=== PATIENT | female | born 1970 | race Caucasian/White ===

== ENCOUNTER → 2023-07-28 07:36 | Outpatient (REF) | payer OTHER, SELFPAY | LOC: HWRAD 07:36 | PROVIDERS: ATTENDING PHYSICIAN Nurse Practitioner | DX: E04.1 Nontoxic single thyroid nodule (principal) | CPT/HCPCS: 76536 ==

== ENCOUNTER 2023-09-20 06:17 | Day surgery (SDC) | payer OTHER, SELFPAY ==
[2023-09-19 07:52] VITALS: BMI 29.0
[2023-09-20] VITALS (7 sets, daily range): BP systolic 10–134; BP diastolic 75–87; BMI 29.0
[2023-09-20] MEDS: NORMOSOL-R 1000 IV (10:40)
[2023-09-20] MEDS: TYLENOL 1000 MG PO (10:40)
== END 2023-09-20 16:00 | disposition home or self-care (01) ==
LOC: SDS 06:17
PROVIDERS: ATTENDING PHYSICIAN Surgery; FAMILY PHYSICIAN Nurse Practitioner
DX: K64.4 Residual hemorrhoidal skin tags (principal); K64.8 Other hemorrhoids
CPT/HCPCS: 46260; 88304; 36415; 93005

== ENCOUNTER → 2023-11-23 11:55 | Outpatient (REF) | payer OTHER, SELFPAY | LOC: WDC 11:55 | PROVIDERS: ATTENDING PHYSICIAN Obstetrics & Gynecology; FAMILY PHYSICIAN Internal Medicine | DX: Z12.31 Encounter for screening mammogram for malignant neoplasm of breast (principal) | CPT/HCPCS: 77063; 77067 ==

== ENCOUNTER → 2024-12-19 07:50 | Outpatient (REF) | payer OTHER, SELFPAY | LOC: WDC 07:50 | PROVIDERS: ATTENDING PHYSICIAN Obstetrics & Gynecology; FAMILY PHYSICIAN Nurse Practitioner | DX: Z12.31 Encounter for screening mammogram for malignant neoplasm of breast (principal) | CPT/HCPCS: 77063; 77067 ==